=== PATIENT | female | born 1955 | race Caucasian/White ===

== ENCOUNTER → 2017-01-27 | Outpatient (REF) | payer OTHER ==
[2017-01-27 19:20] LABS: BASO # 0.1 10^3/uL (0.0-0.2); EOS # 1.3 10^3/uL (0.0-0.50); IMMATURE GRANULOCYTE % 0.2 % (0-0); LYMPH # 2.6 10^3/uL (1.5-4.5); LYMPH % 28.4 % (24.0-44.0); MEAN CORPUSCULAR HEMOGLOBIN 30.7 pg (27.0-33.0); MEAN CORPUSCULAR HGB CONC 32.7 g/dl (32.0-36.5); MEAN CORPUSCULAR VOLUME 93.8 fl (80.0-96.0); MONO # 0.4 10^3/uL (0.0-0.8); MONO % 4.8 % (0.0-5.0); NEUTROPHILS # 4.7 10^3/uL (1.8-7.7); NEUTROPHILS % 51.6 % (36.0-66.0); PLATELET COUNT, AUTOMATED 370 10^3/uL (150-450); RED CELL DISTRIBUTION WIDTH 12.6 % (11.5-14.5)
[2017-01-27 20:37] LABS: ALBUMIN/GLOBULIN RATIO 1.33 (1.00-1.93); ALKALINE PHOSPHATASE 92 U/L (45-117); ALT/SGPT 18 U/L (12-78); ANION GAP 6 MEQ/L (8-16); AST/SGOT 10 U/L (7-37); BILIRUBIN,TOTAL 0.3 MG/DL (0.2-1.0); BLOOD UREA NITROGEN 14 MG/DL (7-18); CALCIUM LEVEL 9.6 MG/DL (8.8-10.2); CARBON DIOXIDE LEVEL 30 MEQ/L (21-32); CHLORIDE LEVEL 107 MEQ/L (98-107); CREATININE FOR GFR 0.79 MG/DL (0.55-1.02); GAMMA GLUTAMYLTRANSPEPTIDASE 15 U/L (5-55); GLOMERULAR FILTRATION RATE > 60.0 (>45); GLUCOSE, FASTING 107 MG/DL (80-110); POTASSIUM SERUM 3.9 MEQ/L (3.5-5.1); SODIUM LEVEL 143 MEQ/L (136-145)
== END ==
LOC: M LAB REF 17:26
PROVIDERS: ATTEND Nurse Practitioner Adult Health
DX: R19.7 Diarrhea, unspecified (principal)

== ENCOUNTER → 2017-06-03 | Outpatient (CLI) | payer OTHER | LOC: M EKG 16:12 | DX: F41.1 Generalized anxiety disorder (principal); R94.31 Abnormal electrocardiogram [ECG] [EKG] | CPT/HCPCS: 93005 ==

== ENCOUNTER → 2021-06-08 | Outpatient (CLI) | payer MEDICARE, OTHER | LOC: M WUC 12:14 | PROVIDERS: ATTEND Physician Assistant | DX: J44.9 Chronic obstructive pulmonary disease, unspecified (principal); M16.0 Bilateral primary osteoarthritis of hip; R91.8 Other nonspecific abnormal finding of lung field ==

== ENCOUNTER → 2024-10-11 | Outpatient (REF) | payer MEDICARE, MEDICAID ==
[2024-10-11 18:41] LABS: ALT/SGPT 19 U/L (7.0-40); AST/SGOT 17 U/L (<34); C REACTIVE PROTEIN QUANTITATIV < 0.50 MG/DL (<1.0); CALCIUM LEVEL 10.1 MG/DL (8.3-10.6); CARBON DIOXIDE LEVEL 29 MMOL/L (20-31); CHLORIDE LEVEL 104 MMOL/L (98-107); CHOLESTEROL LEVEL 207 MG/DL (<200); CHOLESTEROL RISK RATIO 3.81 (<5); CREATININE FOR GFR 0.68 MG/DL (0.55-1.30); GLOMERULAR FILTRATION RATE > 90.0 (>45); LDL CHOLESTEROL 107.0 MG/DL (<100); NON-HDL-C 152.8 MG/DL; POTASSIUM SERUM 4.7 MMOL/L (3.5-5.1); SODIUM LEVEL 144 MMOL/L (136-145); TRIGLYCERIDES LEVEL 229 MG/DL (<150)
[2024-10-11 18:42] LABS: RHEUMATOID FACTOR QUANT < 3.5 IU/ML (<14)
[2024-10-11 18:47] LABS: BASO # 0.1 10^3/uL (0.0-0.2); BASO % 0.7 % (0.0-1.0); EOS # 0.2 10^3/uL (0.0-0.5); EOS % 1.7 % (0.0-3.0); LYMPH # 3.1 10^3/uL (1.5-5.0); LYMPH % 26.4 % (24.0-44.0); MONO # 0.7 10^3/uL (0.0-0.8); MONO % 5.5 % (2.0-8.0); NEUTROPHILS # 7.7 10^3/uL (1.5-8.5); NEUTROPHILS % 65.4 % (36.0-66.0); PLATELET COUNT, AUTOMATED 481 10^3/uL (150-450)
[2024-10-11 19:02] LABS: ERYTHROCYTE SEDIMENTATION RATE 32 mm/hr (0-30)
[2024-10-11 19:34] LABS: ESTIMATED AVERAGE GLUCOSE 100.0 MG/DL (60-110)
== END ==
LOC: M LAB REF 18:03
PROVIDERS: ATTEND Nurse Practitioner Family
DX: M31.6 Other giant cell arteritis (principal); Z13.220 Encounter for screening for lipoid disorders; Z79.52 Long term (current) use of systemic steroids; Z79.899 Other long term (current) drug therapy